=== PATIENT | female | born 1950 | race Caucasian/White ===

== ENCOUNTER 2017-07-28 10:14 | Observation (INO) | payer MEDICARE ==
--- NOTE | 2017-07-28 10:31 | ER Document Report ---
ED Medical Screen (RME) - General Chief Complaint: S/S of Possible Stroke Stated Complaint: DIZZY, FACIAL NUMBNESS, SPEECH IMPAIRMENT Time Seen by Provider: 07/28/17 10:29 Mode of Arrival: Wheelchair Information source: Patient Notes: This is a 66-year-old female with a history of hypertension, on chronic anticoagulation (Eliquis) who was brought in to the emergency room because of perioral numbness, expressive aphasia, gait and balance. Symptoms were noted by daughter at approximately 6 AM this morning. Patient was last seen last night and she was normal at that time. TRAVEL OUTSIDE OF THE [place] IN LAST 30 DAYS: No - Related Data Allergies/Adverse Reactions: Jevmxlm-Ljx-Zsr Reductase Inhibitor Adverse Reaction (Verified 07/28/17 10:20) Physical Exam - Vital signs Vitals: Temp Pulse Resp BP Pulse Ox 97.8 F 58 L 20 168/63 H 97 07/28/17 10:20 07/28/17 10:20 07/28/17 10:20 07/28/17 10:20 07/28/17 10:20 Course - Vital Signs Vital signs: Temp Pulse Resp BP Pulse Ox 97.8 F 58 L 20 168/63 H 97 07/28/17 10:20 07/28/17 10:20 07/28/17 10:20 07/28/17 10:20 07/28/17 10:20
--- NOTE | 2017-07-28 10:38 | RADIOLOGY REPORT (SQ) ---
EXAM DESCRIPTION: CT HEAD WITHOUT COMPLETED DATE/TIME: 07/28/2017 10:29 am REASON FOR STUDY: s/s of stroke COMPARISON: None. TECHNIQUE: Axial images acquired through the brain without intravenous contrast. Images reviewed wi th bone, brain and subdural windows. Images stored on PACS. All CT scanners at this facility use dose modulation, iterative reconstruction, and/or weight based d osing when appropriate to reduce radiation dose to as low as reasonably achievable (ALARA). [facility]: Dose Right [facility]: CareDose [facility]: Dose Right [facility]: Teradose 4D [facility]: The Clearing RADIATION DOSE: CT Rad equipment meets quality standard of care and radiation dose reduction techniq ues were employed. CTDIvol: 64.6 mGy. DLP: 1034 mGy-cm. mGy. LIMITATIONS: None. FINDINGS: VENTRICLES: Normal size and contour. CEREBRUM: No masses. No hemorrhage. No midline shift. No evidence for acute infarction. Normal gra y/white matter differentiation. No areas of low density in the white matter. CEREBELLUM: No masses. No hemorrhage. No alteration of density. No evidence for acute infarction. EXTRAAXIAL SPACES: No fluid collections. No masses. ORBITS AND GLOBE: No intra- or extraconal masses. Normal contour of globe without masses. CALVARIUM: No fracture. PARANASAL SINUSES: No fluid or mucosal thickening. SOFT TISSUES: No mass or hematoma. OTHER: No other significant finding. IMPRESSION: NORMAL BRAIN CT WITHOUT CONTRAST. EVIDENCE OF ACUTE STROKE: NO. COMMENT: Quality ID # [id number]: Final reports with documentation of one or more dose reduction techniques (e.g., Automated exposure control, adjustment of the mA and/or kV according to patient size, use of iterative reconstruction technique) TECHNICAL DOCUMENTATION: JOB ID: [id number] [employer]- All Rights Reserved Reading location - IP/workstation name: [email or web address]
--- NOTE | 2017-07-28 10:46 | RADIOLOGY REPORT (SQ) ---
EXAM DESCRIPTION: CHEST SINGLE VIEW COMPLETED DATE/TIME: 07/28/2017 10:35 am REASON FOR STUDY: cva symptoms COMPARISON: None. NUMBER OF VIEWS: One view. TECHNIQUE: Single frontal radiographic view of the chest acquired. LIMITATIONS: None. FINDINGS: LUNGS AND PLEURA: No opacities, masses or pneumothorax. No pleural effusion. MEDIASTINUM AND HILAR STRUCTURES: No masses. Contour normal. HEART AND VASCULAR STRUCTURES: Heart enlarged without failure. Normal vasculature. BONES: No acute findings. HARDWARE: None in the chest. OTHER: No other significant finding. IMPRESSION: HEART ENLARGED WITHOUT FAILURE. NO OTHER SIGNIFICANT RADIOGRAPHIC FINDING IN THE CHEST. TECHNICAL DOCUMENTATION: JOB ID: [id number] [employer]- All Rights Reserved Reading location - IP/workstation name: [email or web address]
--- NOTE | 2017-07-28 10:54 | EKG REPORT ---
SEVERITY:- ABNORMAL ECG - SINUS RHYTHM LEFT VENTRICULAR HYPERTROPHY : Confirmed by: Siobhan Yeboah 28-Jul-2017 10:53:52
[2017-07-28 10:56] LABS: ABSOLUTE BASOPHILS # (AUTO) 0.1 10^3/uL (0.0-0.2); ABSOLUTE EOSINOPHILS # (AUTO) 0.4 10^3/uL (0.0-0.6); ABSOLUTE LYMPHOCYTES (AUTO) 2.3 10^3/uL (0.5-4.7); ABSOLUTE MONOCYTES (AUTO) 0.8 10^3/uL (0.1-1.4); BASOPHILS % (AUTO) 1.3 % (0-2); EOSINOPHILS % (AUTO) 4.5 % (0-6); HEMATOCRIT 37.5 % (36.0-47.0); HEMOGLOBIN 13.1 g/dL (12.0-15.5); LYMPHOCYTES % (AUTO) 27.2 % (13-45); MEAN CORPUSCULAR HEMOGLOBIN 28.8 pg (27.0-33.4); MEAN CORPUSCULAR VOLUME 82 fl (80-97); MONOCYTES % (AUTO) 9.3 % (3-13); PLATELET COUNT 314 10^3/uL (150-450); RED BLOOD COUNT 4.56 10^6/uL (3.72-5.28); RED CELL DISTRIBUTION WIDTH 13.9 % (11.5-14.0); SEGMENTED NEUTROPHILS % (AUTO) 57.7 % (42-78); TOTAL CELLS COUNTED % (AUTO) 100 %; WHITE BLOOD COUNT 8.6 10^3/uL (4.0-10.5)
--- NOTE | 2017-07-28 11:08 | ER Document Report ---
ED General - General Chief Complaint: S/S of Possible Stroke Stated Complaint: DIZZY, FACIAL NUMBNESS, SPEECH IMPAIRMENT Time Seen by Provider: 07/28/17 10:29 Mode of Arrival: Wheelchair Notes: Patient says that when she first awakened this morning and her usual time, she felt lightheaded and dizzy. She was also experiencing a "little", "mild" frontal headache. She noticed that her walking was "off" and she felt her balance was poorly controlled. [place] as if she might fall and needed assistance to walk. She did not have any slurring of her speech, but her daughter says that she was saying words that "were not connected". She still has some aching in her eyes in front of her head. No change in her vision, however. Some nausea but not vomiting. Has noticed some left-sided chest pain here since arriving in the emergency department. She always has shortness of breath because she used to smoke and she has had pulmonary emboli. No recent illness such as fevers, etc. PMH: Mini strokes. 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 History of NIDDM, hypertension. TRAVEL OUTSIDE OF THE [place] 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 Denies: Hx Asthma Neurological Medical History: Reports: Hx Cerebrovascular Accident - Mini strokes Endocrine Medical History: Reports: Hx Diabetes Mellitus Type 2, Hx Hypothyroidism GI Medical History: Reports: Hx Gastroesophageal Reflux Disease Psychiatric Medical History: Reports: Hx Depression Review of Systems - Review of Systems Notes: REVIEW OF SYSTEMS: CONSTITUTIONAL : Denies fever. EENT: Denies ear, nose or mouth or throat pain or other symptoms. Some eye aching. CARDIOVASCULAR: See HPI. RESPIRATORY: Denies cough, chest congestion, but always has shortness of breath. GASTROINTESTINAL: Denies abdominal pain , vomiting, or diarrhea. Has some nausea GENITOURINARY: Denies difficulty or painful urinating, urinary frequency, blood in urine. MUSCULOSKELETAL: Denies back or neck pain. Denies joint pain or swelling. SKIN: Denies rash or skin lesions. NEUROLOGICAL: Denies LOC or altered mental status. See HPI. Denies sensory loss or motor deficits. ALL OTHER SYSTEMS REVIEWED AND NEGATIVE. Physical Exam - Vital signs Vitals: Temp Pulse Resp BP Pulse Ox 97.8 F 58 L 20 168/63 H 97 07/28/17 10:20 07/28/17 10:20 07/28/17 10:20 07/28/17 10:20 07/28/17 10:20 Interpretation: Normal, Hypertensive - Mild - Notes Notes: PHYSICAL EXAMINATION: GENERAL: Well-appearing, in no acute distress. Vital signs all essentially normal except for very mild elevation of blood pressure. HEAD: Atraumatic, normocephalic. EYES: Pupils equal round and reactive to light, extraocular movements intact. ENT: oropharynx clear without exudates. Moist mucous membranes. NECK: Normal range of motion, supple. No carotid bruits heard. LUNGS: Breath sounds clear and equal bilaterally. HEART: Regular rate and rhythm without murmurs. ABDOMEN: Soft, nontender. No guarding or rebound. No masses. BACK: No tenderness throughout entire back. EXTREMITIES: Normal range of motion without pain. Negative Homans bilaterally. NEUROLOGICAL: See HPI. Awake, alert, and oriented x3. Patient assisted to stand and she can walk across the room. She appears to be slightly unsteady on her feet, but does not fall. She can fish bait picker my pen from the table and put it down with both hands. She does not have any nystagmus. No apparent limb weakness. PSYCH: Normal mood, normal affect. SKIN: Warm, dry, no rashes. Course - Re-evaluation Re-evalutation: 07/28/17 12:29 Patient remained stable during her stay in the department. She had no worsening of symptoms. She is able to use all 4 extremities. Her primary problem is balance concerns. Her workup is all essentially normal. I spoke with Dr. Hassan, hospitalist on-call, and he will admit the patient for observation. - Vital Signs Vital signs: Temp Pulse Resp BP Pulse Ox 97.8 F 52 L 18 131/63 H 95 07/28/17 10:20 07/28/17 10:40 07/28/17 12:22 07/28/17 12:22 07/28/17 12:22 - Laboratory Result Diagrams: 07/28/17 10:40 07/28/17 10:40 Laboratory results interpreted by me: 07/28/17 10:40 BUN 32 H Glucose 111 H Alkaline Phosphatase 27 L - Diagnostic Test Radiology reviewed: Image reviewed, Reports reviewed - CT scan of the brain is normal. No evidence of stroke. Radiology results interpreted by me: 07/28/17 11:25 Chest x-ray shows cardiomegaly, but no acute findings. - EKG Interpretation by [place] EKG shows normal: Sinus rhythm Rate: Normal Rhythm: NSR - At 51 bpm. LVH Voltage: Increased voltage, Consistant with LVH When compared to previous EKG there are: Previous EKG unavailable Discharge - Discharge Clinical Impression: TIA (transient ischemic attack) Condition: Stable Disposition: ADMITTED OBSERVATION Admitting Provider: Hospitalist Unit Admitted: Telemetry
[2017-07-28 11:19] LABS: ALANINE AMINOTRANSFERASE 31 U/L (9-52); ALBUMIN 4.4 g/dL (3.5-5.0); ALKALINE PHOSPHATASE 27 U/L (38-126); ANION GAP 12 (5-19); ASPARTATE AMINO TRANSFERASE 24 U/L (14-36); BILIRUBIN,DIRECT 0.4 mg/dL (0.0-0.4); BILIRUBIN,TOTAL 0.4 mg/dL (0.2-1.3); BLOOD UREA NITROGEN 32 mg/dL (7-20); CALCIUM 10.2 mg/dL (8.4-10.2); CARBON DIOXIDE 26 mmol/L (22-30); CHLORIDE 102 mmol/L (98-107); CREATINE KINASE 71 U/L (30-135); GLUCOSE 111 mg/dL (75-110); POTASSIUM 4.4 mmol/L (3.6-5.0); SODIUM 140.1 mmol/L (137-145); TOTAL PROTEIN 7.8 g/dL (6.3-8.2)
[2017-07-28 11:31] LABS: TROPONIN I < 0.012 ng/mL
[2017-07-28 11:56] LABS: PROTHROMBIN TIME 13.9 SEC (11.4-15.4)
[2017-07-28] MEDS ORDERED: MAGNESIUM HYDROXIDE SUSP 30 ML UDCUP PO PRN (13:05)
[2017-07-28] MEDS ORDERED: DOCUSATE SODIUM 100 MG CAPSULE PO PRN (13:05)
[2017-07-28] MEDS ORDERED: DEXTROSE 40% GEL 15 GM TUBE PO PRN ×2 (13:08)
[2017-07-28] MEDS ORDERED: DEXTROSE 50%-WATER 25 GM/50 ML DISP.SYRIN IV PRN ×2 (13:08)
[2017-07-28] MEDS ORDERED: GLUCAGON,HUMAN RECOMB 1 MG INJ IM PRN (13:08)
[2017-07-28] MEDS ORDERED: INSULIN LISPRO 100 UNIT/ML 3 ML VIAL SUBCUT PRN (13:08)
--- NOTE | 2017-07-28 14:07 | RADIOLOGY REPORT (SQ) ---
EXAM DESCRIPTION: MRI HEAD WITHOUT COMPLETED DATE/TIME: 07/28/2017 1:57 pm REASON FOR STUDY: dysarthria E02 SUBCLINICAL IODINE-DEFICIENCY HYPOTHYROIDISM E08.65 DIABETES DUE TO UNDERLYING CONDITION W HYPERGLYCEMIA COMPARISON: CT dated 07/28/2017. TECHNIQUE: Multiplanar imaging includes non-contrasted T1, T2, FLAIR, and diffusion with ADC map seq uences. Images stored on PACS. LIMITATIONS: None. FINDINGS: ANATOMY: No anomalies. Normal vascular flow voids. Pituitary fossa normal. CSF SPACES: Normal in size and contour. No hemorrhage. CEREBRUM: Sulci and gyri normal in size and contour. Normal white matter signal on FLAIR imaging. No evidence of hemorrhage, mass, or extraaxial fluid collection. POSTERIOR FOSSA: No signal alteration. No hemorrhage. No edema, masses or mass effect. Internal chuy tory canals, cerebello-pontine angles, mastoids normal. DIFFUSION IMAGING: Negative for acute or sub-acute infarction. ORBITS: No masses. Globes normal. PARANASAL SINUSES: No fluid levels. Mucosa normal. OTHER: No other significant finding. IMPRESSION: NORMAL MRI OF THE BRAIN WITHOUT INTRAVENOUS GADOLINIUM CONTRAST. EVIDENCE OF ACUTE STROKE: NO. TECHNICAL DOCUMENTATION: JOB ID: [id number] [employer]- All Rights Reserved Reading location - IP/workstation name: [email or web address]
--- NOTE | 2017-07-28 18:50 | PDOC H&P ---
History of Present Illness Admission Date/PCP: 07/28/17 12:43 IFRAH SHEETS PA-C Patient complains of: Dizziness and slurred speech History of Present Illness: TIFFANY ROMAN is a 66 year old female with a past medical history of hypertension, dementia, diabetes, TIA who presents with headache, perioral numbness, expressive aphasia and gait imbalance 2 hours prior to presentation. Patient last seen normal 12 hours prior, she is in no acute distress denying any medication use. In the emergency room she has an entirely unremarkable workup and appears at baseline without deficits, with fluent speech. She is referred to the hospitalist for TIA. 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 Denies: Asthma Endocrine Medical History: Reports: Diabetes Mellitus Type 2, Hypothyroidism GI Medical History: Reports: Gastroesophageal Reflux Disease Psychiatric Medical History: Reports: Depression Past Surgical History Past Surgical History: Reports: Section Social History Information Source: Patient, Relative Lives with: Family Smoking Status: Former Smoker Frequency of Alcohol Use: None Drugs: None - Advance Directive Resuscitation Status: Full Code Family History Family History: Reviewed & Not Pertinent, Thyroid Disfunction, Other - Dementia Parental Family History Reviewed: Yes Children Family History Reviewed: Yes Sibling(s) Family History Reviewed.: Yes Medication/Allergy Home Medications: Apixaban [Eliquis] 5 mg PO Q12 07/28/17 Aspirin [Ecotrin] 81 mg PO DAILY 07/28/17 Citalopram Hydrobromide [Celexa 20 mg Tablet] 20 mg PO DAILY 07/28/17 Ergocalciferol (Vitamin D2) [Vitamin D2] 50,000 unit PO SA@1000 07/28/17 Fenofibric Acid (Choline) [Fenofibric Acid] 135 mg PO DAILY 07/28/17 Ibuprofen 600 mg PO BIDP PRN 07/28/17 Levothyroxine Sodium [Synthroid] 125 mcg PO DAILY 07/28/17 Lisinopril/Hydrochlorothiazide [Lisinopril-Hctz 20-12.5 mg Tab] 1 tab PO Q12 04/06 Metoprolol Tartrate [Lopressor 50 mg Tablet] 50 mg PO Q12 07/28/17 Sitagliptin Phos/Metformin HCl [Janumet 50-1,000 Mg Tablet] 1 tab PO BID Allergies/Adverse Reactions: Iheferv-Pvc-Edh Reductase Inhibitor Adverse Reaction (Verified 07/28/17 10:20) Review of Systems Constitutional: ABSENT: chills, fever(s), headache(s), weight gain, weight loss Eyes: ABSENT: visual disturbances Ears: ABSENT: hearing changes Cardiovascular: ABSENT: chest pain, dyspnea on exertion, edema, orthropnea, palpitations Respiratory: ABSENT: cough, hemoptysis Gastrointestinal: ABSENT: abdominal pain, constipation, diarrhea, hematemesis, hematochezia, nausea, vomiting Genitourinary: ABSENT: dysuria, hematuria Musculoskeletal: ABSENT: joint swelling Integumentary: ABSENT: rash, wounds Neurological: ABSENT: abnormal gait, abnormal speech, confusion, dizziness, focal weakness, syncope Psychiatric: ABSENT: anxiety, depression, homidical ideation, suicidal ideation Endocrine: ABSENT: cold intolerance, heat intolerance, polydipsia, polyuria Hematologic/Lymphatic: ABSENT: easy bleeding, easy bruising Physical Exam Vital Signs: Temp Pulse Resp BP Pulse Ox 98.4 F 56 L 20 133/65 H 94 07/28/17 16:27 07/28/17 16:27 07/28/17 16:27 07/28/17 16:27 07/28/17 16:27 General appearance: PRESENT: no acute distress, well-developed, well-nourished Head exam: PRESENT: atraumatic, normocephalic Eye exam: PRESENT: conjunctiva pink, EOMI, PERRLA. ABSENT: scleral icterus Ear exam: PRESENT: normal external ear exam Mouth exam: PRESENT: moist, tongue midline Neck exam: ABSENT: carotid bruit, JVD, lymphadenopathy, thyromegaly Respiratory exam: PRESENT: clear to auscultation mia. ABSENT: rales, rhonchi, wheezes Cardiovascular exam: PRESENT: RRR. ABSENT: diastolic murmur, rubs, systolic murmur Pulses: PRESENT: normal dorsalis pedis pul Vascular exam: PRESENT: normal capillary refill GI/Abdominal exam: PRESENT: normal bowel sounds, soft. ABSENT: distended, guarding, mass, organolmegaly, rebound, tenderness Rectal exam: PRESENT: deferred Extremities exam: PRESENT: full ROM. ABSENT: calf tenderness, clubbing, pedal edema Neurological exam: PRESENT: alert, awake, oriented to person, oriented to place , oriented to time, oriented to situation, CN II-XII grossly intact. ABSENT: motor sensory deficit Psychiatric exam: PRESENT: appropriate affect, normal mood. ABSENT: homicidal ideation, suicidal ideation Skin exam: PRESENT: dry, intact, warm. ABSENT: cyanosis, rash Results Impressions: Head CT 07/28/17 00:00 IMPRESSION: NORMAL BRAIN CT WITHOUT CONTRAST. EVIDENCE OF ACUTE STROKE: NO. Head MRI 07/28/17 00:00 IMPRESSION: NORMAL MRI OF THE BRAIN WITHOUT INTRAVENOUS GADOLINIUM CONTRAST. EVIDENCE OF ACUTE STROKE: NO. Chest X-Ray 07/28/17 10:29 IMPRESSION: HEART ENLARGED WITHOUT FAILURE. NO OTHER SIGNIFICANT RADIOGRAPHIC FINDING IN THE CHEST. Assessment & Plan - Diagnosis (1) TIA (transient ischemic attack) Is this a current diagnosis for this admission?: Yes Plan: Patient on Eliquis for pulmonary emboli. CVA care set, follow-up MRI head and carotid Doppler. Evaluate TSH and urine drug screen. (2) Hypothyroidism Is this a current diagnosis for this admission?: Yes Plan: Evaluate thyroid function test (3) Diabetes Is this a current diagnosis for this admission?: Yes Plan: Evaluate A1c, home regiment with exception to metformin and sliding scale. - Time Time Spent: 30 to 50 Minutes
[2017-07-28] MEDS: APIXABAN 5 MG TABLET PO SCH (21:50)
[2017-07-28] MEDS: METOPROLOL TARTRATE 50 MG TABLET PO SCH (21:50)
[2017-07-29] MEDS: LEVOTHYROXINE SODIUM 0.1 MG TABLET PO SCH (05:13)
[2017-07-29] MEDS: LEVOTHYROXINE SODIUM 0.025 MG TABLET PO SCH (05:13)
[2017-07-29 05:57] LABS: CHOLESTEROL 205.52 mg/dL (0-200); TRIGLYCERIDES 419 mg/dL (<150)
[2017-07-29 06:08] LABS: DIRECT LDL 123 mg/dL (<100)
[2017-07-29] MEDS ORDERED: (PENDING PHARMACY ID) (Fenofibric Acid (Choline) [Fenofibric Acid] 135 MG) PO SCH (10:00)
[2017-07-29] MEDS: APIXABAN 5 MG TABLET PO SCH ×2 (10:40→22:15)
[2017-07-29] MEDS: CITALOPRAM HYDROBROMIDE 20 MG TABLET PO SCH (10:40)
[2017-07-29] MEDS: ASPIRIN 81 MG TABLET, ENT COATED PO SCH (10:40)
[2017-07-29] MEDS: METOPROLOL TARTRATE 50 MG TABLET PO SCH ×2 (10:41→22:15)
--- NOTE | 2017-07-29 12:43 | RADIOLOGY REPORT (SQ) ---
EXAM DESCRIPTION: CAROTID DOPPLER COMPLETED DATE/TIME: 07/29/2017 11:36 am REASON FOR STUDY: dysarthria E02 SUBCLINICAL IODINE-DEFICIENCY HYPOTHYROIDISM E08.65 DIABETES DUE TO UNDERLYING CONDITION W HYPERGLYCEMIA R55 SYNCOPE AND COLLAPSE COMPARISON: None. TECHNIQUE: Grayscale ultrasound, Doppler velocity and spectra, and color Doppler images acquired of the extra-cranial carotid and vertebral arteries. Images stored on PACS. LIMITATIONS: None. FINDINGS: RIGHT CAROTID CCA Velocities: Within normal limits. ICA Velocities Peak systolic 1.05 m/s. End diastolic 0.30 m/s. Proximal ICA/CCA peak systolic ratio 1.5. Spectra normal. No significant plaque. LEFT CAROTID CCA Velocities: Within normal limits. ICA Velocities Peak systolic 1.03 m/s. End diastolic 0.35 m/s. Proximal ICA/CCA peak systolic ratio 1.3. Spectra normal. No significant plaque. VERTEBRAL ARTERIES: Antegrade flow. Normal waveforms. SUBCLAVIAN ARTERIES: No finding. OTHER: No other significant finding. IMPRESSION: NO HEMODYNAMICALLY SIGNIFICANT STENOSIS. COMMENT: Quality ID #[id number]: Velocity criteria are extrapolated from the diameter data as defined by t he Society of Radiologists in Ultrasound Consensus Conference. Radiology 2003: 229; 340-346. TECHNICAL DOCUMENTATION: JOB ID: [id number] [employer]- All Rights Reserved Reading location - IP/workstation name: [email or web address]
[2017-07-29] MEDS ORDERED: FUROSEMIDE 20 MG TABLET PO ONE (13:30)
[2017-07-29] MEDS ORDERED: HYDROCHLOROTHIAZIDE 12.5 MG CAPSULE PO ONE (14:00)
[2017-07-29] MEDS ORDERED: LISINOPRIL 10 MG TABLET PO ONE (14:00)
--- NOTE | 2017-07-29 15:29 | PDOC PROGRESS REPORT ---
Subjective Progress Note for:: 07/29/17 Subjective:: The patient is a 66-year-old female with a past medical history of hypertension , dementia, diabetes, TIA who was admitted on 07/28/17 for TIA symptoms involving headache, perioral numbness, and expressive aphasia with gait imbalance. The patient is seen on morning rounds. She is alert and oriented 4, however, is noted to be slightly confused and forgetful. She states that her headache and perioral numbness have resolved. The patient is not noted to have expressive aphasia at this time. She does complain of continued instability with ambulating to the restroom. Reason For Visit: TIA DEMENTIA HYPOTHYROID Physical Exam Vital Signs: Temp Pulse Resp BP Pulse Ox 97.7 F 55 L 16 131/63 H 96 07/29/17 12:00 07/29/17 12:00 07/29/17 12:00 07/29/17 12:00 07/29/17 12:00 Intake & Output 07/28/17 07/29/17 07/30/17 06:59 06:59 06:59 Intake Total 355 591 Output Total 600 400 Balance -245 191 Weight 85.9 kg General appearance: PRESENT: no acute distress, obese, well-developed, well- nourished Head exam: PRESENT: atraumatic, normocephalic Eye exam: PRESENT: conjunctiva pink, EOMI, PERRLA. ABSENT: scleral icterus Ear exam: PRESENT: normal external ear exam Mouth exam: PRESENT: moist, tongue midline Neck exam: ABSENT: carotid bruit, JVD, lymphadenopathy, thyromegaly Respiratory exam: PRESENT: crackles - Bibasilar, symmetrical, unlabored. ABSENT : rales, rhonchi, wheezes Cardiovascular exam: PRESENT: RRR, +S1, +S2, systolic murmur. ABSENT: diastolic murmur, rubs Pulses: PRESENT: normal dorsalis pedis pul Vascular exam: PRESENT: normal capillary refill GI/Abdominal exam: PRESENT: normal bowel sounds, soft. ABSENT: distended, guarding, mass, organolmegaly, rebound, tenderness Rectal exam: PRESENT: deferred Extremities exam: PRESENT: full ROM. ABSENT: calf tenderness, clubbing, pedal edema Neurological exam: PRESENT: alert, awake, oriented to person, oriented to place , oriented to time, oriented to situation, abnormal gait, CN II-XII grossly intact, other - Forgetful. ABSENT: motor sensory deficit Psychiatric exam: PRESENT: appropriate affect, normal mood. ABSENT: homicidal ideation, suicidal ideation Skin exam: PRESENT: dry, intact, warm. ABSENT: cyanosis, rash Results Laboratory Results: 07/29/17 05:05 Triglycerides 419 H Cholesterol 205.52 H LDL Cholesterol Direct 123 H VLDL Cholesterol UNABLE TO CALCULATE HDL Cholesterol 33 L 07/28/17 17:30 Troponin I < 0.012 Impressions: Head CT 07/28/17 00:00 IMPRESSION: NORMAL BRAIN CT WITHOUT CONTRAST. EVIDENCE OF ACUTE STROKE: NO. Head MRI 07/28/17 00:00 IMPRESSION: NORMAL MRI OF THE BRAIN WITHOUT INTRAVENOUS GADOLINIUM CONTRAST. EVIDENCE OF ACUTE STROKE: NO. Chest X-Ray 07/28/17 10:29 IMPRESSION: HEART ENLARGED WITHOUT FAILURE. NO OTHER SIGNIFICANT RADIOGRAPHIC FINDING IN THE CHEST. Carotid Doppler Study 07/29/17 00:00 IMPRESSION: NO HEMODYNAMICALLY SIGNIFICANT STENOSIS. Assessment & Plan - Diagnosis (1) TIA (transient ischemic attack) Is this a current diagnosis for this admission?: Yes Plan: The patient is admitted to [facility] on continuous cardiac telemetry. Carotid Doppler: No hemodynamically significant stenosis Head MRI: Normal MRI of the head without contrast; no evidence of acute stroke Echocardiogram is pending We will obtain urinalysis to evaluate for UTI and UDS. We will continue MENDS every 4 hours the patient continues to be forgetful and we are uncertain of her baseline mental status given the history of dementia. Continue daily aspirin and Eliquis. Will optimize management of hypertension, hyperlipidemia, and diabetes. (2) Ataxia Plan: PT/OT evaluation has been ordered. Fall precautions . (3) Diabetes Is this a current diagnosis for this admission?: Yes Plan: The patient is placed on a diabetic diet. We will monitor with Accu-Cheks before meals and at bedtime with Humalog for sliding scale coverage. We will ask the stroke educator, registered dietitian, and knitting tester to meet with the patient. (4) Hypothyroidism Is this a current diagnosis for this admission?: Yes Plan: TSH is appropriate at 0.73. Continue the patient's home dose levothyroxine. (5) Heart murmur Is this a current diagnosis for this admission?: Yes Plan: Patient is noted to have a systolic heart murmur and bibasilar crackles. Serial troponins are normal. ProBNP has not been evaluated. Patient is here with TIA symptoms; will obtain echocardiogram. - Time Time Spent with patient: 25-34 minutes Anticipated discharge: Home Within: within 24 hours
[2017-07-29 16:03] LABS: APPEARANCE,URINE CLEAR; BILIRUBIN,URINE NEGATIVE (NEGATIVE); COLOR,URINE STRAW; GLUCOSE, URINE NEGATIVE (NEGATIVE); KETONES,URINE NEGATIVE (NEGATIVE); LEUKOCYTE ESTERASE,URINE NEGATIVE (NEGATIVE); NITRITE,URINE NEGATIVE (NEGATIVE); PROTEIN,URINE 30 mg/dL (NEGATIVE); URINE SPECIFIC GRAVITY 1.006; UROBILINOGEN,URINE NEGATIVE mg/dL (<2.0)
[2017-07-29] MEDS ORDERED: LORAZEPAM 0.5 MG TABLET PO PRN (17:05)
[2017-07-29] MEDS ORDERED: (PENDING PHARMACY ID) (Lisinopril/Hydrochlorothiazide [Lisinopril-Hctz 20-12.5 Mg Tab] 1 T PO SCH (22:00)
[2017-07-29] MEDS: HYDROCHLOROTHIAZIDE 12.5 MG CAPSULE PO SCH (22:15)
[2017-07-29] MEDS: LISINOPRIL 10 MG TABLET PO SCH (22:15)
[2017-07-30] MEDS: LEVOTHYROXINE SODIUM 0.1 MG TABLET PO SCH (05:08)
[2017-07-30] MEDS: LEVOTHYROXINE SODIUM 0.025 MG TABLET PO SCH (05:08)
[2017-07-30 05:36] LABS: HEMATOCRIT 39.9 % (36.0-47.0); HEMOGLOBIN 13.7 g/dL (12.0-15.5); MEAN CORPUSCULAR HEMOGLOBIN 28.2 pg (27.0-33.4); MEAN CORPUSCULAR HGB CONC 34.3 g/dL (32.0-36.0); MEAN CORPUSCULAR VOLUME 82 fl (80-97); PLATELET COUNT 299 10^3/uL (150-450); RED BLOOD COUNT 4.85 10^6/uL (3.72-5.28); RED CELL DISTRIBUTION WIDTH 13.7 % (11.5-14.0); WHITE BLOOD COUNT 8.5 10^3/uL (4.0-10.5)
[2017-07-30 05:52] LABS: ANION GAP 13 (5-19); BLOOD UREA NITROGEN 36 mg/dL (7-20); CALCIUM 10.2 mg/dL (8.4-10.2); CARBON DIOXIDE 26 mmol/L (22-30); CHLORIDE 100 mmol/L (98-107); GLUCOSE 117 mg/dL (75-110); POTASSIUM 4.2 mmol/L (3.6-5.0); SODIUM 138.5 mmol/L (137-145)
[2017-07-30] MEDS: ASPIRIN 81 MG TABLET, ENT COATED PO SCH (09:31)
[2017-07-30] MEDS: CITALOPRAM HYDROBROMIDE 20 MG TABLET PO SCH (09:32)
[2017-07-30] MEDS: HYDROCHLOROTHIAZIDE 12.5 MG CAPSULE PO SCH (09:32)
[2017-07-30] MEDS: METOPROLOL TARTRATE 50 MG TABLET PO SCH (09:32)
[2017-07-30] MEDS: LISINOPRIL 10 MG TABLET PO SCH (09:33)
[2017-07-30] MEDS: APIXABAN 5 MG TABLET PO SCH (09:33)
--- NOTE | 2017-07-30 09:41 | Physician Advisory Note ---
Physician Advisor ProgressNote .: [facility], I have reviewed the medical record for this patient. Physician Advisor Statement: Status: approp'ly Obs, w/expectation of likely d/c home today, 07/30. -H&P indicated mental status back to baseline already, no ongoing deficits. PT/ OT found no need for continued services on 07/29 @ midday. -If pt was kept 2nd MN in order to get ECHO that was planned at time of admission, payer will not consider 2nd MN medically necessary because they will say it was a "delay of care" that it wasn't done either 07/28 or 07/29. HOWEVER, -if pt initially was not felt to need ECHO on 07/28, -and there was a new reason/concern 07/29 that made ECHO & 2nd MN medically necessary (not just "waiting for Saturday AM to order it since it wouldn't get done Saturday anyway"), -& this info is explicitly documented by attending, -then appropriate for this Medicare pt to be changed to Inpatient, even if she can go home today. Thanks! CK -
--- NOTE | 2017-07-30 12:36 | XCELERA REPORT ---
[address] [address] Transthoracic Echocardiogram Report Name: TIFFANY ROMAN Age: 66 yrs Gender: Female : 1950 Patient Status: Inpatient Patient Location: [address] [place] [address] Study Date: 07/30/2017 10:20 AM Height: 61 in Weight: 189 lb BSA: 1.8 m2 Procedure: A complete two-dimensional transthoracic echocardiogram was performed (2D, M-mode, spectral and color flow Doppler). The study was technically adequate with some images being suboptimal in quality. Reason For Study: syncope Ordering Physician: TOYIN LYONS Performed By: Helen Head Interpretation Summary The left ventricular ejection fraction is normal. There is mild concentric left ventricular hypertrophy. Doppler measurements suggest pseudonormalized left ventricular relaxation, which is associated with grade II/IV or mild to moderate diastolic dysfunction Wall motion cannot be accurately commented on, but no definite regional wall motion abnormalities noted. The left ventricle is grossly normal size. The right ventricular systolic function is normal. The left atrium is moderately dilated. The right atrium is normal in size There is mild to moderate mitral stenosis Mitral valve Area 1.8 cmsq There is a trace amount of mitral regurgitation There is no aortic valve stenosis No aortic regurgitation is present. No tricuspid regurgitation. There is no tricuspid stenosis. There is no pericardial effusion. MMode/2D Measurements & Calculations RVDd: 2.8 cm LVIDd: 4.7 cmFS: 41.7 % Ao root diam: 2.9 cm IVSd: 1.3 cm LVIDs: 2.8 cmEDV(Teich): 104.5 ml LVPWd: 1.2 cmESV(Teich): 28.6 ml Ao root area: 6.5 cm2 EF(Teich): 72.6 % LA dimension: 5.2 cm LVOT diam: 2.0 cm LVOT area: 3.0 cm2 Doppler Measurements & Calculations MV E max eliecer: MV P1/2t max eliecer: Ao V2 max: LV V1 max P.4 cm/sec 102.0 cm/sec 148.6 cm/sec 6.8 mmHg MV A max eliecer: MV P1/2t: 117.2 msec Ao max PG: LV V1 max: 159.0 cm/sec MVA(P1/2t): 1.9 cm2 8.8 mmHg 130.7 cm/sec MV E/A: 0.64 MV dec slope: KEMAL(V,D): 2.6 cm2 255.0 cm/sec2 PA V2 max: 85.4 cm/sec PA max P.9 mmHg Left Ventricle The left ventricle is grossly normal size. There is mild concentric left ventricular hypertrophy. The left ventricular ejection fraction is normal. Doppler measurements suggest pseudonormalized left ventricular relaxation, which is associated with grade II/IV or mild to moderate diastolic dysfunction. Wall motion cannot be accurately commented on, but no definite regional wall motion abnormalities noted. Right Ventricle The right ventricle is grossly normal size. There is normal right ventricular wall thickness. The right ventricular systolic function is normal. Atria The right atrium is normal in size. The left atrium is moderately dilated. Interarterial septum not well visualized and not well dopplered. Cannot comment on ASD/PFO presence. Mitral Valve There is moderate mitral leaflet calcification. There is moderate mitral annular calcification. There is mild to moderate mitral stenosis. Mitral valve Area 1.8 cmsq. There is a trace amount of mitral regurgitation. Aortic Valve The aortic valve is mildly calcified. There is no aortic valve stenosis. No aortic regurgitation is present. Tricuspid Valve The tricuspid valve is not well visualized secondary to technical limitations. There is no tricuspid stenosis. No tricuspid regurgitation. Pulmonic Valve The pulmonic valve is not well visualized. Great Vessels The aortic root is not well visualized. The inferior vena cava appeared normal and decreased > 50% with respiration (RAP 5-10 mmHg). Effusions There is no pericardial effusion. : TOYIN LYONS > Siobhan Yeboah
[2017-07-30 13:36] VITALS: BP 131/63
--- NOTE | 2017-07-30 15:20 | PDOC DISCHARGE SUMMARY ---
General - Admit/Disc Date/PCP Admission Date/Primary Care Provider: 07/28/17 12:43 IFRAH SHEETS PA-C Discharge Date: 07/30/17 - Discharge Diagnosis (1) TIA (transient ischemic attack) Is this a current diagnosis for this admission?: Yes (3) Diabetes Is this a current diagnosis for this admission?: Yes (4) Hypothyroidism Is this a current diagnosis for this admission?: Yes (5) Heart murmur Is this a current diagnosis for this admission?: Yes - Additional Information Resuscitation Status: Full Code Discharge Diet: Cardiac, Diabetic Discharge Activity: Activity As Tolerated, Balance Activity w/Rest Home Medications: Apixaban [Eliquis] 5 mg PO Q12 07/28/17 Aspirin [Ecotrin] 81 mg PO DAILY 07/28/17 Citalopram Hydrobromide [Celexa 20 mg Tablet] 20 mg PO DAILY 07/28/17 Ergocalciferol (Vitamin D2) [Vitamin D2] 50,000 unit PO SA@1000 07/28/17 Fenofibric Acid (Choline) [Fenofibric Acid] 135 mg PO DAILY 07/28/17 Levothyroxine Sodium [Synthroid] 125 mcg PO DAILY 07/28/17 Lisinopril/Hydrochlorothiazide [Lisinopril-Hctz 20-12.5 mg Tab] 1 tab PO Q12 04/06 Metoprolol Tartrate [Lopressor 50 mg Tablet] 50 mg PO Q12 07/28/17 Sitagliptin Phos/Metformin HCl [Janumet 50-1,000 mg Tablet] 1 tab PO BID Apixaban [Eliquis 5 mg Tablet] 5 mg PO Q12 tablet 07/30/17 Aspirin [Ecotrin 81 mg EC Tablet] 81 mg PO DAILY tabec 07/30/17 Levothyroxine Sodium [Synthroid 0.025 mg Tablet] 0.025 mg PO Q6AM tablet Levothyroxine Sodium [Synthroid 0.1 mg Tablet] 0.1 mg PO Q6AM tablet 07/30/17 Metoprolol Tartrate [Lopressor 50 mg Tablet] 50 mg PO Q12 tablet 07/30/17 History of Present Illness History of Present Illness: Per H&P by Dr. Hassan: TIFFANY ROMAN is a 66 year old female with a past medical history of hypertension, dementia, diabetes, TIA who presents with headache, perioral numbness, expressive aphasia and gait imbalance 2 hours prior to presentation. Patient last seen normal 12 hours prior, she is in no acute distress denying any medication use. In the emergency room she has an entirely unremarkable workup and appears at baseline without deficits, with fluent speech. She is referred to the hospitalist for TIA. Hospital Course Hospital Course: The patient was admitted with TIA symptoms of headache, perioral numbness, expressive aphasia, and gait disturbance. Evaluation included admission on continuous cardiac telemetry; no abnormal heart rhythms were observed. Carotid Doppler was obtained without evidence of hemodynamically significant stenosis. Head MRI demonstrated normal MRI of the head without contrast and no evidence of an acute stroke. Echocardiogram revealed a normal left ventricular ejection fraction, mild left ventricular hypertrophy with mild to moderate diastolic dysfunction, and trace mitral regurgitation. A1c was found to be 6.8%. The patient's lipid panel demonstrated an LDL of 23, HDL of 33, and triglyceride of 419. The patient was continued on her home dose Eliquis, aspirin, and Fenofibric acid. Unfortunately, the patient has an adverse reaction to statins. I encouraged the patient and the family member to discuss this with her primary care provider and consideration of trial of low-dose statin therapy at follow- up appointment. She was evaluated by PT/OT and found to be independent with no recommendations for skilled physical therapy. At time of discharge, all symptoms have resolved, the patient is in stable condition, and she is discharged home to the care of her family members. She is to continue her home medications as previously prescribed. She is recommended to follow-up with her primary care provider within 1 week. Physical Exam Vital Signs: Temp Pulse Resp BP Pulse Ox 97.3 F 62 20 131/63 H 96 07/30/17 13:32 07/30/17 13:32 07/30/17 13:32 07/30/17 13:32 07/30/17 13:32 Intake & Output 07/29/17 07/30/17 07/31/17 06:59 06:59 06:59 Intake Total 355 1071 Output Total 600 400 Balance -245 671 Weight 85.9 kg 85.2 kg General appearance: PRESENT: no acute distress, obese, well-developed, well- nourished Head exam: PRESENT: atraumatic, normocephalic Eye exam: PRESENT: conjunctiva pink, EOMI, PERRLA. ABSENT: scleral icterus Ear exam: PRESENT: normal external ear exam Mouth exam: PRESENT: moist, tongue midline Neck exam: ABSENT: carotid bruit, JVD, lymphadenopathy, thyromegaly Respiratory exam: PRESENT: clear to auscultation mia, symmetrical, unlabored. ABSENT: rales, rhonchi, wheezes Cardiovascular exam: PRESENT: RRR, +S1, +S2, systolic murmur. ABSENT: diastolic murmur, rubs Pulses: PRESENT: normal dorsalis pedis pul Vascular exam: PRESENT: normal capillary refill GI/Abdominal exam: PRESENT: normal bowel sounds, soft. ABSENT: distended, guarding, mass, organolmegaly, rebound, tenderness Rectal exam: PRESENT: deferred Extremities exam: PRESENT: full ROM. ABSENT: calf tenderness, clubbing, pedal edema Neurological exam: PRESENT: alert, awake, oriented to person, oriented to place , oriented to time, oriented to situation, CN II-XII grossly intact. ABSENT: motor sensory deficit Psychiatric exam: PRESENT: appropriate affect, normal mood. ABSENT: homicidal ideation, suicidal ideation Skin exam: PRESENT: dry, intact, warm. ABSENT: cyanosis, rash Results Laboratory Results: 07/30/17 04:54 07/30/17 04:54 07/29/17 07/30/17 07/30/17 15:42 04:54 04:54 WBC 8.5 RBC 4.85 Hgb 13.7 Hct 39.9 MCV 82 MCH 28.2 MCHC 34.3 RDW 13.7 Plt Count 299 Sodium 138.5 Potassium 4.2 Chloride 100 Carbon Dioxide 26 Anion Gap 13 BUN 36 H Creatinine 0.92 Est GFR ( Amer) > 60 Est GFR (Non-Af Amer) > 60 Glucose 117 H Calcium 10.2 Urine Color STRAW Urine Appearance CLEAR Urine pH 6.0 Ur Specific [place] 1.006 Urine Protein 30 H Urine Glucose (UA) NEGATIVE Urine Ketones NEGATIVE Urine Blood NEGATIVE Urine Nitrite NEGATIVE Ur Leukocyte Esterase NEGATIVE Urine WBC (Auto) 4 Urine RBC (Auto) 0 07/28/17 17:30 Troponin I < 0.012 Impressions: Head CT 07/28/17 00:00 IMPRESSION: NORMAL BRAIN CT WITHOUT CONTRAST. EVIDENCE OF ACUTE STROKE: NO. Head MRI 07/28/17 00:00 IMPRESSION: NORMAL MRI OF THE BRAIN WITHOUT INTRAVENOUS GADOLINIUM CONTRAST. EVIDENCE OF ACUTE STROKE: NO. Chest X-Ray 07/28/17 10:29 IMPRESSION: HEART ENLARGED WITHOUT FAILURE. NO OTHER SIGNIFICANT RADIOGRAPHIC FINDING IN THE CHEST. Carotid Doppler Study 07/29/17 00:00 IMPRESSION: NO HEMODYNAMICALLY SIGNIFICANT STENOSIS. Qualifiers - * PATEINT BEING DISCHARGED WITH ANY OF THE FOLLOWING DIAGNOSIS?: No
== END 2017-07-30 13:48 | disposition home or self-care (01) ==
LOC: ER 10:14 → EH 12:43 → 3W 15:25
PROVIDERS: ADMIT Emergency Medicine; ATTEND Emergency Medicine
DX: G45.9 Transient cerebral ischemic attack, unspecified (principal); E11.9 Type 2 diabetes mellitus without complications; E03.9 Hypothyroidism, unspecified; R01.1 Cardiac murmur, unspecified; F03.90 Unspecified dementia, unspecified severity, without behavioral disturbance, psychotic disturbance, mood disturbance, and anxiety; R27.0 Ataxia, unspecified; R07.9 Chest pain, unspecified; R11.0 Nausea; R06.02 Shortness of breath; I10 Essential (primary) hypertension; Z79.01 Long term (current) use of anticoagulants; Z79.82 Long term (current) use of aspirin; Z79.899 Other long term (current) drug therapy; Z86.73 Personal history of transient ischemic attack (TIA), and cerebral infarction without residual deficits; Z87.891 Personal history of nicotine dependence; Z88.8 Allergy status to other drugs, medicaments and biological substances; Z86.711 Personal history of pulmonary embolism; Z86.718 Personal history of other venous thrombosis and embolism
CPT/HCPCS: 93005; 99285; 36415 ×3; 82553; 82962 ×3; 82550; 84443; 85025; 85027; 85610; 80048; 80053; 81001; 84484; 83036; 80061; 93306; 93880; 70551; 71045; 70450; 93010; 97110; 97163; 97167; A9270 ×19; J3490 ×3; G8978; G8979; G8980

== ENCOUNTER → 2020-04-15 | Outpatient (CLI) | payer MEDICARE ==
[2020-04-15 12:32] VITALS: BP 119/75
--- NOTE | 2020-04-15 12:32 | ER RDC ASSESSMENT REPORT ---
Intake - In the Last 14 days Have you traveled outside [place]?: No Have you been in close contact with someone CONFIRMED: Yes Worked in Healthcare?: No - Symptoms Subjective Fever([place] feverish): No Chills: No Muscule Aches: No Runny Nose: No Sore Throat: No Cough (New or worsening chronic cough): No Shortness of breath: No Nausea or Vomiting: No Headache: No Abdominal Pain: No Diarrhea(3 or more loose stools in last 24 hours): No - Do you have any of the following Chronic lung disease: Asthma or emphysema or COPD: No Cystic Fibrosis: No Diabetes: Yes High Blood Pressure: Yes Cardiovascular Disease: Yes Chronic Kidney Disease: No Chronic Liver Disease: No Chronic blood disorder like Sickle Cell Disease: No Weak immune system due to disease or medication: No Neurologic condition that limits movement: No Developmental delay - Moderate to Severe: No Recent (within past 2 weeks) or current : No Morbid Obesity (>100 pounds over ideal weight): No - Objective Temperature: 98.2 F Pulse Rate: 61 Respiratory Rate: 16 Blood Pressure: 119/75 O2 Sat by Pulse Oximetry: 95 Objective: Patient is a well-appearing 69-year-old female, who presents today for COVID-19 screening. Disposition: Home; Selfcare General - General Stated Complaint: COVID-19 screening Mode of Arrival: Ambulatory Information source: Patient Notes: The patient was evaluated during the global COVID-19 pandemic. That diagnosis was suspected/considered upon initial presentation. Their evaluation, treatment, and testing was consistent with current guidelines for patients who present with complaints or symptoms that may be related to COVID-19. Patient reports having close contact exposure to a COVID-19 lab confirmed positive individual. - HPI Patient complains to provider of: Asymptomatic, no complaint Quality of pain: No pain Severity: None Pain Level: Denies Associated symptoms: None Exacerbated by: Denies Relieved by: Denies Similar symptoms previously: No Recently seen / treated by doctor: No - Related Data Allergies/Adverse Reactions: Tkkzlde-Ihm-Trf Reductase Inhibitor Adverse Reaction (Verified 07/28/17 10:20) Past Medical History - General Information source: Patient - Social History Smoking Status: Current Every Day Smoker Cigarette use (# per day): Yes - 2 pack/day Chew tobacco use (# tins/day): No Smoking Education Provided: Yes Frequency of alcohol use: Occasional Drug Abuse: None Occupation: Retired Lives with: Family Family History: Reviewed & Not Pertinent Patient has suicidal ideation: No Patient has homicidal ideation: No - Past Medical History Cardiac Medical History: Reports: Hx Hypercholesterolemia, Hx Hypertension, Hx Pulmonary Embolism Denies: Hx Atrial Fibrillation, Hx Coronary Artery Disease, Hx Heart Attack Pulmonary Medical History: Denies: Hx Asthma Neurological Medical History: Reports: Hx Cerebrovascular Accident - Mini strokes Endocrine Medical History: Reports: Hx Diabetes Mellitus Type 2, Hx Hypothyr oidism Renal/ Medical History: Denies: Hx Peritoneal Dialysis GI Medical History: Reports: Hx Gastroesophageal Reflux Disease Psychiatric Medical History: Reports: Hx Depression Past Surgical History: Reports: Hx Section Physical Exam - General General appearance: Appears well In distress: None Notes: PHYSICAL EXAMINATION: GENERAL: Well-appearing with No Acute Distress noted. HEAD: Atraumatic, Normocephalic. EYES: Sclera anicteric, Conjunctiva are pink and moist. ENT: Nares patent. Moist mucous membranes. NECK: Normal range of motion, supple without lymphadenopathy. LUNGS: CTAB and equal. No wheezes rales or rhonchi. HEART: Regular rate and rhythm without murmurs. ABDOMEN: Soft, nontender, normal bowel sounds, no guarding. EXTREMITIES: Normal range of motion, no pitting edema. No cyanosis. BACK: No midline or CVA tenderness. No step-off or deformity. NEUROLOGICAL: Cranial nerves grossly intact. Normal speech. Normal gait. PSYCH: Calm, Cooperative, and answers questions appropriately. Normal mood and affect. SKIN: Warm, Dry, Normal color and Turgor, No obvious lesions or rash noted. Diagnostic Results Laboratory Results: Patient advised at this time they are considered a Person Under Investigation (PUI) for the COVID-19 Coronavirus. They have been made aware it is currently taking 3 to 5 days to receive their results. Patient advised The [facility] Department will call to notify them of a POSITIVE result, and an [facility] application development team lead will call to notify them of a NEGATIVE result. Patient Education/Counseling Counseling/Education: Patient presents with upper respiratory symptoms worrisome for possible COVID- 19. Patient does not have symptoms worrisome as an emergency such as difficulty breathing, shortness of breath, chest pain, pressure, confusion or cyanosis. Patient appears suitable for discharge as they are not of an advanced age, do not have any chronic medical conditions such as diabetes, CAD, immune deficiency, chronic lung disease. Patient's vital signs are stable and patient is nontoxic in appearance. Good return precautions have been discussed with patient, patient verbalized understanding and is agreeable with discharge plan of care at this time. Patient provided COVID-19 discharge instructions to include: As a person under investigation for COVID-19, the [facility], division of public health advises you to adhere to the following guidance until your test results are reported to you. If your test result is positive, you will receive additional information from your provider and your local health department at that time. Remain at home until you are cleared by the health provider or public health authorities. Keep a log of visitors to your home, notify any visitors to your home of your isolation status. If you plan to move to a new address or leave the county, notify the local health department in your County. Call your doctor or seek care if you have an urgent medical need. Before seeking medical care, call ahead to get instructions from the provider before arriving at the medical office clinic or hospital. Notify them that you are being tested for the virus that causes COVID-19 so that arrangements can be made, as necessary, to prevent transmission to others in the healthcare setting. Next, notify the local health department in your county. If a medical emergency arises and you need to call 911, inform dispatch and the first responders that you are being tested for the virus that causes COVID-19. Next, notify the local health department in your county. Patient provided education on smoking cessation and the harmful effects of smoking, especially in the presence of Co-morbid conditions such as Hypertension, Diabetes, and/or other chronic illnesses. Patient verbalized understanding of smoking cessation education, and the increased health benefits of quitting. Guidance for worsening S/SX: For worsening symptoms, patient has been advised to contact their Primary Care Provider, or go to the nearest Emergency Department. RDC Discharge - Discharge Clinical Impression: COVID-19 Screening URI (upper respiratory infection) Qualifiers: URI type: unspecified URI Qualified Code(s): J06.9 - Acute upper respiratory infection, unspecified Condition: Stable Disposition: Home; Selfcare
== END ==
LOC: RDC 08:12
PROVIDERS: ATTEND Nurse Practitioner Family
DX: J06.9 Acute upper respiratory infection, unspecified (principal); Z20.828 Contact with and (suspected) exposure to other viral communicable diseases; E11.9 Type 2 diabetes mellitus without complications; I10 Essential (primary) hypertension; E78.00 Pure hypercholesterolemia, unspecified; E03.9 Hypothyroidism, unspecified; K21.9 Gastro-esophageal reflux disease without esophagitis; F17.210 Nicotine dependence, cigarettes, uncomplicated; Z71.6 Tobacco abuse counseling; Z86.73 Personal history of transient ischemic attack (TIA), and cerebral infarction without residual deficits; Z86.711 Personal history of pulmonary embolism; Z88.8 Allergy status to other drugs, medicaments and biological substances
CPT/HCPCS: 99201; U0003; G0463; C9803; 87635; 99211